=== PATIENT | female | born 1975 | race African-American/Black ===

== ENCOUNTER 2017-01-10 09:14 | Emergency (ER) | payer OTHER, SELFPAY ==
[~2017-01-10 09:14] MED LIST: Iopamidol 370 76% 100 ML VIAL ONE
[2017-01-10 09:50] LABS: Bilirubin Negative (Negative); Blood, Urine Moderate (Negative); Glucose, Urine (Dipstick) 500 mg/dL (Negative); Ketone, Urine Negative (Negative); Nitrite Negative (Negative); Protein, Urine (Dipstick) Negative (Neg-Trace); Urobilinogen 0.2 mg/dL (0.2-1.0)
[2017-01-10 10:06] LABS: RBC/HPF 0-3 HPF (0-3); Squamous Epithelial 0-3 HPF (0-3); Trichomonas/HPF 1+ HPF (None Seen); WBC/HPF 0-3 HPF (0-3)
[2017-01-10 10:23] LABS: #Eosinphils 0.1 thou/uL (0.0-0.7); #Monocytes 0.3 thou/uL (0.11-0.59); #Neutrophils 2.7 thou/uL (1.40-6.50); %Basophils 1.1 % (0.0-1.0); %Eosinophils 3.4 % (0.0-10.0); %Lymphocytes 24.4 % (21.0-51.0); Hematocrit 44.5 % (36.0-47.0); Mean Platelet Volume 8.4 fL (7.4-10.4); White Blood Cell (WBC) Count 4.2 thou/uL (4.8-10.8)
[2017-01-10 10:48] LABS: ALT (SGPT) 23 U/L (0-55); AST (SGOT) 13 U/L (5-34); Alkaline Phosphatase 97 U/L (40-150); Anion Gap 12 mmol/L (10-20); BUN (Urea Nitrogen) 10 mg/dL (7.0-18.7); Bilirubin, Total 0.2 mg/dL (0.2-1.2); Calc. Creatinine Clearance 0 mL/min (70-130); Carbon Dioxide 21 mmol/L (22-29); Chloride 106 mmol/L (98-107); Estimated GFR-MDRD 86; Globulin 3.7 g/dL (2.4-3.5); Protein, Total 7.1 g/dL (6.0-8.3)
--- NOTE | 2017-01-10 11:22 | CT ---
CT OF THE ABDOMEN AND PELVIS WITH CONTRAST: HISTORY: Low back pain that started a week ago with left flank pain. TECHNIQUE: Multiple contiguous axial images were obtained in a CT of the abdomen and pelvis with contrast. Cor onal reformats were performed. FINDINGS: There is a large laminated gallstone in the gallbladder. There is no biliary dilatation. The liver , kidneys, adrenal glands, spleen, and pancreas are unremarkable. No free air, free fluid, or stran ding changes are seen in the abdomen or pelvis. The large and small bowel are unremarkable. No abdominal or pelvic lymphadenopathy are seen. The r eproductive organs are unremarkable. Degenerative changes are seen in the spine. The abdominal wall soft tissues and visualized inferior thorax are unremarkable. IMPRESSION: Cholelithiasis. POS: FIGUEROA
[2017-01-10] MEDS ORDERED: cefTRIAXone\\ROCEPHIN 1 GM VIAL ONE (12:26)
[2017-01-10] MEDS ORDERED: Sodium Chloride 0.9% 100 ML ONE (12:26)
[2017-01-10] MEDS ORDERED: Fentanyl 100 MCG/2 ML VIAL ONE (13:31)
[2017-01-10] MEDS ORDERED: Insulin Regular 300 UNITS/3 ML VIAL ONE (13:32)
[2017-01-10] MEDS ORDERED: Sodium Chloride 0.9% 1,000 ML ONE (13:32)
== END 2017-01-10 14:46 | disposition home or self-care (01) ==
LOC: NAV ERS 09:14
DX: N83.201 Unspecified ovarian cyst, right side (principal); K80.80 Other cholelithiasis without obstruction; N39.0 Urinary tract infection, site not specified; E11.9 Type 2 diabetes mellitus without complications; A59.01 Trichomonal vulvovaginitis; I10 Essential (primary) hypertension; F41.9 Anxiety disorder, unspecified
CPT/HCPCS: 36416; 74177; 80053; 81003; 81015; 81025; 85025; 86140; 87491; 87591; 96361; 96365; 96372; 96375; J0696; J1815; J3010; J7050

== ENCOUNTER 2021-05-22 12:04 | Emergency (ER) | payer OTHER ==
[2021-05-22 13:03] LABS: Anion Gap 16 mmol/L (10-20); BUN (Urea Nitrogen) 15 mg/dL (7.0-18.7); Calc. Creatinine Clearance 0 mL/min (70-130); Calcium 9.4 mg/dL (7.8-10.44); Carbon Dioxide 20 mmol/L (22-29); Chloride 104 mmol/L (98-107); Glucose 332 mg/dL (70-105); Potassium 4.2 mmol/L (3.5-5.1); Sodium 136 mmol/L (136-145)
[2021-05-22 13:03] LABS: Bilirubin Negative (Negative); Blood, Urine Small (Negative); Glucose, Urine (Dipstick) >=1000 mg/dL (Negative); Ketone, Urine Negative (Negative); Leukocyte Negative (Negative); Nitrite Negative (Negative); Protein, Urine (Dipstick) 30 mg/dL (Neg-Trace); Urobilinogen 0.2 mg/dL (Less than 2); pH, Urine 5.5 (5.0-9.0)
[2021-05-22 13:04] LABS: #Basophils 0.1 thou/uL (0.0-0.2); #Eosinphils 0.1 thou/uL (0.0-0.7); #Lymphocytes 2.4 thou/uL (1.20-3.40); #Monocytes 0.4 thou/uL (0.11-0.59); #Neutrophils 2.2 thou/uL (1.40-6.50); %Basophils 1.3 % (0.0-1.0); %Eosinophils 2.2 % (0.0-10.0); %Lymphocytes 45.7 % (21.0-51.0); %Monocytes 8.2 % (0.0-10.0); %Neutrophils 42.6 % (42.0-75.0); Mean Corpuscular HGB CONC 30.4 g/dL (32.0-36.0); Mean Corpuscular Hemoglobin 28.5 pg (27.0-31.0); Mean Corpuscular Volume 93.7 fL (78.0-98.0); Mean Platelet Volume 12.4 fL (7.4-10.4); Platelet Count 225 thou/uL (130-400); RBC Distribution Width 13.3 % (11.5-14.5); Red Blood Cell (RBC) Count 5.26 mill/uL (4.20-5.40); White Blood Cell (WBC) Count 5.2 thou/uL (4.8-10.8)
[2021-05-22 13:05] LABS: Magnesium 1.8 mg/dL (1.6-2.6); Phosphorus 2.3 mg/dL (2.3-4.7)
[2021-05-22 13:07] LABS: Clarity Hazy (Clear)
[2021-05-22 13:13] LABS: Bacteria/HPF 3+ HPF (None Seen); RBC/HPF 0-3 HPF (0-3); Specific Gravity, Urine 1.043 (1.002-1.036); Transitional Epithelial 0-3 HPF (None Seen); WBC/HPF 0-3 HPF (0-3)
[2021-05-22] MEDS ORDERED: Insulin Regular 300 UNITS/3 ML VIAL ONE (13:59)
[2021-05-22] MEDS ORDERED: Sodium Chloride 0.9% 2,000 ML ONE (13:59)
== END 2021-05-22 15:10 | disposition home or self-care (01) ==
LOC: NAV ERS 12:04
DX: E11.9 Type 2 diabetes mellitus without complications (principal); I10 Essential (primary) hypertension; E66.9 Obesity, unspecified; J45.909 Unspecified asthma, uncomplicated; E78.00 Pure hypercholesterolemia, unspecified; Z79.84 Long term (current) use of oral hypoglycemic drugs; Z79.899 Other long term (current) drug therapy
CPT/HCPCS: 36416; 80048; 81003; 81015; 83735; 84100; 85025; 93005; 96374; J1815; J7050